=== PATIENT | male | born 1950 | race African-American/Black ===

== ENCOUNTER 2016-11-12 15:27 | Emergency (ER) | payer OTHER ==
[~2016-11-12] VITALS: Ht 177.8 cm; Wt 91.8 kg
[~2016-11-12 15:27] MED LIST: ASPIRIN EC325 MG PO; Aspirin PO; CARAFATE1 GM PO; CATAPRES0.1 MG PO; CATAPRES0.2 MG PO; CIPROFLOXACIN500 M1 PO; CITRATE OF MAG296 ML PO; CLONIDINE HCL0.1 MG PO; DICYCLOMINE HCL20 MG PO; DILTIAZEM PO; DIOVAN160 MG PO; DULCOLAX5 MG PO; Ecotrin PO; FLAGYL500 MG PO; GLIPIZIDE XL10 MG PO; GLIPIZIDE10 MG PO; GLUCOPHAGE500 MG PO; Glucotrol PO; HARVONI 90-4001 EACH PO; HYDROCHLOROTHIA25 MG PO; HYTRIN2 MG PO; Hydrodiuril,Oretic,E PO; INDOCIN25 MG PO; INSULIN; LEVEMIR FL100 UNIT/1 SC; LEVEMIR FL100 UNITS/ SC; LIDODERM 5% P1 PATCH TD; LISINOPRIL10 MG PO; LISINOPRIL20 MG PO; LOW DOSE ASPIRI81 M1 PO; METOPROLOL TART50 MG PO; MORPHINE SULFAT15 M1 PO; MORPHINE SULFAT30 M2 PO; MOTRIN800 MG PO; MS CONTIN,ORAMO30 MG PO; Milk Of Magnesia,MOM PO; NICODERM CQ1 EAC2 TD; NORVASC10 MG PO; Norvasc PO; ONDANSETRON ODT4 MG PO; OPANA ER20 MG PO; OXYCODONE HCL15 MG PO; OXYCONTIN15 MG PO; OXYCONTIN20 MG PO; OXYCONTIN30 MG PO; OXYMORPHONE HCL20 MG; OxyCONTIN PO; PANTOPRAZOLE SO40 MG PO; PERCOCET 10-321 EACH PO; PERCOCET 10/1 TABLET PO; POLYETHYLENE GL17 GM PO; PREDNISONE20 MG PO; PREDNISONE50 MG PO; PRINIVIL10 MG PO; Percocet 5/325,Endoc PO; TERAZOSIN HCL10 MG PO; Tylenol Regular Stre PO; VITAMIN B12 100MCG PO; ZOFRAN4 MG PO; Zestril,Prinivil PO
[2016-11-12 17:46] VITALS: BP 167/80
== END 2016-11-12 20:05 | disposition home or self-care (01) ==
LOC: EME 15:27
DX: S30.0XXA Contusion of lower back and pelvis, initial encounter (principal); G89.29 Other chronic pain; M54.5 Low back pain; W10.9XXA Fall (on) (from) unspecified stairs and steps, initial encounter; E11.9 Type 2 diabetes mellitus without complications; I10 Essential (primary) hypertension; K21.9 Gastro-esophageal reflux disease without esophagitis; R56.9 Unspecified convulsions; F17.200 Nicotine dependence, unspecified, uncomplicated
CPT/HCPCS: 72110; 99281; 99284; J2270

== ENCOUNTER 2017-02-07 04:25 | Emergency (ER) | payer OTHER ==
[~2017-02-07] VITALS: Ht 177.8 cm; Wt 100.0 kg
[2017-02-07 04:48] LABS: ADD MIUA? YES; BILIRUBIN NEGATIVE; BLOOD SMALL; COLOR YELLOW ((YELLOW)); GLUCOSE (STRIP) 150; KETONES NEGATIVE; LEUKOCYTES NEGATIVE; NITRITE NEGATIVE; PROTEIN (STRIP) 100; SPECIFIC GRAVITY 1.018 (1.000-1.030); UROBILINOGEN 0.2 MG/DL (0.2-1.0)
[2017-02-07 04:58] LABS: BACTERIA NONE SEEN /HPF; EPITHELIAL CELLS RARE /HPF; MUCUS TRACE /LPF; RED BLOOD CELLS 0-5 /HPF (0-5); WHITE BLOOD CELLS 0-5 /HPF (0-5)
[2017-02-07 05:25] LABS: EOSINOPHIL (%) 1.5 % (0-5); EOSINOPHIL COUNT 0.2 K/uL (0-0.3); HEMATOCRIT 39.2 % (38.0-50.0); IMMATURE GRANULOCYTE (%) 0.4 % (0.0-0.7); INSTRUMENT ABS NEUTROPHIL CT 7.2 K/uL; LYMPHOCYTE COUNT 2.5 K/uL (1.0-2.8); MCH 30.1 PG (29.0-34.0); MCHC 33.9 G/DL (30.0-36.0); MCV 88.7 FL (86-99); MEAN PLAT.VOLUME 11.7 uM^3 (9.0-12.4); MONOCYTE (%) 5.8 % (3-12); MONOCYTE COUNT 0.6 K/uL (0-0.8); NEUTROPHIL (%) 68.6 % (45-76); NEUTROPHIL COUNT 7.2 K/uL (1.8-6.4); PLATELET COUNT 145 K/uL (156-360); RBC DIS.WIDTH-CV 12.8 % (11.8-14.6); RBC DIS.WIDTH-SD 41.4 % (39-53); RED BLOOD COUNT 4.42 M/uL (4.00-5.50); WHITE BLOOD COUNT 10.5 K/uL (4.1-10.2)
[2017-02-07 05:35] LABS: CHLORIDE 104 mEq/L (99-109); POTASSIUM 3.2 mEq/L (3.7-5.4); SODIUM 139 mEq/L (136-147)
[2017-02-07 05:36] LABS: GLUCOSE 162 mg/dL (70-99)
[2017-02-07 05:38] LABS: ANION GAP 10 MEQ/L (2-14)
[2017-02-07 05:40] LABS: GFR ESTIMATE (CALCULATED) > 59 mL/min/
[2017-02-07 05:41] LABS: UREA NITROGEN (BUN) 16 mg/dL (9-23)
[2017-02-07] MEDS ORDERED: MEDROL DOSEPAK4 MG PO (05:52)
[2017-02-07] MEDS ORDERED: NAPROSYN500 MG PO (05:52)
[2017-02-07] MEDS ORDERED: FLEXERIL10 MG PO (05:52)
[2017-02-07 07:49] VITALS: BP 143/75
== END 2017-02-07 07:50 | disposition home or self-care (01) ==
LOC: EME 04:25
PROVIDERS: Emergency Medicine
DX: M54.9 Dorsalgia, unspecified (principal); R31.9 Hematuria, unspecified; R30.0 Dysuria; R11.2 Nausea with vomiting, unspecified; R50.9 Fever, unspecified; M79.604 Pain in right leg; I70.0 Atherosclerosis of aorta; N28.1 Cyst of kidney, acquired; E11.9 Type 2 diabetes mellitus without complications; Z79.4 Long term (current) use of insulin; I10 Essential (primary) hypertension; Z90.49 Acquired absence of other specified parts of digestive tract; Z79.82 Long term (current) use of aspirin; F17.200 Nicotine dependence, unspecified, uncomplicated
CPT/HCPCS: 74176; 80048; 81003; 85025; 85379; 87086; 93005; 99281; 99284; J1885; J2270; J2405; J3360; J7030

== ENCOUNTER 2017-02-18 20:15 | Observation (INO) | payer OTHER ==
[~2017-02-18] VITALS: Ht 177.8 cm; Wt 97.0 kg
[~2017-02-18 20:15] MED LIST changes: +ASPIR-TRIN325 M1 PO; +FLEXERIL10 MG PO; -LOW DOSE ASPIRI81 M1 PO; +MEDROL DOSEPAK4 MG PO; +NAPROSYN500 MG PO
[2017-02-18 21:12] LABS: HEMATOCRIT 41.4 % (38.0-50.0); MCH 30.4 PG (29.0-34.0); MCHC 33.1 G/DL (30.0-36.0); MCV 91.8 FL (86-99); RBC DIS.WIDTH-CV 13.4 % (11.8-14.6); RBC DIS.WIDTH-SD 45.2 % (39-53); RED BLOOD COUNT 4.51 M/uL (4.00-5.50); WHITE BLOOD COUNT 7.6 K/uL (4.1-10.2)
[2017-02-18 21:23] LABS: CHLORIDE 100 mEq/L (99-109); SODIUM 138 mEq/L (136-147)
[2017-02-18 21:25] LABS: GLUCOSE 215 mg/dL (70-99)
[2017-02-18 21:27] LABS: ANION GAP 7 MEQ/L (2-14)
[2017-02-18 21:29] LABS: GFR ESTIMATE (CALCULATED) > 59 mL/min/
[2017-02-18 21:30] LABS: UREA NITROGEN (BUN) 16 mg/dL (9-23)
[2017-02-18 21:32] LABS: TROP-I INTERPRETATION NEGATIVE; TROPONIN-I < 0.01 ng/mL (0.0-0.30)
[2017-02-18 21:46] LABS: HEMATOLOGY COMMENT 1 SN; PLAT.SUFFICIENCY DECREASED
[2017-02-18 22:27] LABS: MEAN PLAT.VOLUME 11.7 uM^3 (9.0-12.4); PLATELET COUNT 77 K/uL (156-360)
[2017-02-18] MEDS ORDERED: HYTRIN5 MG PO (23:57)
[2017-02-18] MEDS ORDERED: OXYCODONE HCL15 MG PO (23:57)
[2017-02-18] MEDS ORDERED: LYRICA75 MG PO (23:58)
[2017-02-19 02:26] LABS: D-DIMER ELISA < 150.00 ng/mLDDU (<230)
[2017-02-19 02:39] VITALS: BP 226/98
[2017-02-19 02:40] LABS: TROP-I INTERPRETATION NEGATIVE; TROPONIN-I 0.01 ng/mL (0.0-0.30)
[2017-02-19 03:52] VITALS: BP 180/80
[2017-02-19 07:10] LABS: HEMATOCRIT 38.4 % (38.0-50.0); MCH 29.8 PG (29.0-34.0); MCHC 32.6 G/DL (30.0-36.0); MCV 91.4 FL (86-99); MEAN PLAT.VOLUME 12.6 uM^3 (9.0-12.4); PLATELET COUNT 66 K/uL (156-360); RBC DIS.WIDTH-CV 13.4 % (11.8-14.6); RBC DIS.WIDTH-SD 45.3 % (39-53); WHITE BLOOD COUNT 7.6 K/uL (4.1-10.2)
[2017-02-19 07:29] LABS: ALKALINE PHOSPHATASE 81 IU/L (3-129); ANION GAP 6 MEQ/L (2-14); CHLORIDE 100 MEQ/L (99-109); GFR ESTIMATE (CALCULATED) > 59 mL/min/; GLUCOSE 240 mg/dL (70-99); SAMPLE HEMOLYSIS CHECK 0; SAMPLE ICTERIC CHECK 0; SAMPLE LIPEMIA CHECK 0; SODIUM 135 MEQ/L (136-147); TOTAL BILIRUBIN 0.4 MG/DL (0.0-1.0); UREA NITROGEN (BUN) 16 mg/dL (9-23)
[2017-02-19 09:02] LABS: POINT-OF-CARE METER ID UU13113700
[2017-02-19 09:10] LABS: TROP-I INTERPRETATION NEGATIVE; TROPONIN-I < 0.01 ng/mL (0.0-0.30)
[2017-02-19 09:11] VITALS: BP 192/87
[2017-02-19 10:56] VITALS: BP 188/86
[2017-02-19 12:29] VITALS: BP 173/83
[2017-02-19 12:31] LABS: POINT-OF-CARE METER ID UU13113831
[2017-02-19] MEDS ORDERED: HYTRIN5 MG PO (13:02)
[2017-02-19] MEDS ORDERED: NORVASC10 MG PO (13:02)
[2017-02-19] MEDS ORDERED: HYDROCHLOROTHIA25 MG PO (13:03)
== END 2017-02-19 14:10 | disposition home or self-care (01) ==
LOC: EME 20:15 → EDOF 02-19 00:41 → ENRESERV 02-19 00:42 → 5WEST 02-19 02:29
PROVIDERS: Internal Medicine
DX: R07.9 Chest pain, unspecified (principal); I10 Essential (primary) hypertension; R51 Headache; T46.5X6A Underdosing of other antihypertensive drugs, initial encounter; Z91.128 Patient's intentional underdosing of medication regimen for other reason; D69.6 Thrombocytopenia, unspecified; E11.9 Type 2 diabetes mellitus without complications; B18.2 Chronic viral hepatitis C; K86.1 Other chronic pancreatitis; G40.909 Epilepsy, unspecified, not intractable, without status epilepticus; K21.9 Gastro-esophageal reflux disease without esophagitis; N40.0 Benign prostatic hyperplasia without lower urinary tract symptoms; F17.200 Nicotine dependence, unspecified, uncomplicated; G89.29 Other chronic pain; Z90.49 Acquired absence of other specified parts of digestive tract; Z98.1 Arthrodesis status; Z79.891 Long term (current) use of opiate analgesic; Z79.4 Long term (current) use of insulin; Z79.82 Long term (current) use of aspirin; Z79.84 Long term (current) use of oral hypoglycemic drugs
CPT/HCPCS: 70450; 71020; 80048; 80053; 82948; 84484; 85027; 85379; 93005; 99281; 99285; G0378; J1644; J1815; J2270; J7030

== ENCOUNTER 2017-02-27 16:55 | Emergency (ER) | payer OTHER ==
[~2017-02-27] VITALS: Ht 177.8 cm; Wt 90.9 kg
[~2017-02-27 16:55] MED LIST changes: +HYTRIN5 MG PO; +LYRICA75 MG PO
[2017-02-27 17:17] VITALS: BP 152/84
== END 2017-02-27 18:10 | disposition left against medical advice (07) ==
LOC: EME 16:55
DX: M54.9 Dorsalgia, unspecified (principal); Z53.21 Procedure and treatment not carried out due to patient leaving prior to being seen by health care provider

== ENCOUNTER 2017-07-31 20:32 | Observation (INO) | payer OTHER ==
[~2017-07-31] VITALS: Ht 177.8 cm; Wt 94.9 kg
[2017-07-31 21:24] LABS: BASOPHIL (%) 0.2 % (0-1); EOSINOPHIL (%) 2.4 % (0-5); EOSINOPHIL COUNT 0.2 K/uL (0-0.3); HEMATOCRIT 38.4 % (38.0-50.0); HEMOGLOBIN 13.2 G/DL (12.5-16.6); IMMATURE GRANULOCYTE (%) 0.3 % (0.0-0.7); LYMPHOCYTE (%) 32.5 % (15-42); MCHC 34.4 G/DL (30.0-36.0); MCV 90.1 FL (86-99); MONOCYTE (%) 4.7 % (3-12); MONOCYTE COUNT 0.3 K/uL (0-0.8); NEUTROPHIL (%) 59.9 % (45-76); NEUTROPHIL COUNT 3.7 K/uL (1.8-6.4); PLATELET COUNT 102 K/uL (156-360); RBC DIS.WIDTH-CV 13.2 % (11.8-14.6); RBC DIS.WIDTH-SD 43.3 % (39-53); RED BLOOD COUNT 4.26 M/uL (4.00-5.50); WHITE BLOOD COUNT 6.2 K/uL (4.1-10.2)
[2017-07-31 21:33] LABS: D-DIMER ELISA < 150.00 ng/mLDDU (<230)
[2017-07-31 21:34] LABS: CHLORIDE 102 mEq/L (99-109); POTASSIUM 3.6 mEq/L (3.7-5.4); SODIUM 138 mEq/L (136-147)
[2017-07-31 21:37] LABS: GLUCOSE 202 mg/dL (70-99); TOTAL PROTEIN 7.2 g/dL (6.4-8.3)
[2017-07-31 21:38] LABS: TOTAL BILIRUBIN 0.3 mg/dL (0.0-1.0)
[2017-07-31 21:40] LABS: ALKALINE PHOSPHATASE 81 IU/L (3-129); GFR ESTIMATE (CALCULATED) > 59 mL/min/ (58.99-99999)
[2017-07-31 21:41] LABS: UREA NITROGEN (BUN) 10 mg/dL (9-23)
[2017-07-31 21:42] LABS: AST (GOT) 22 IU/L (2-34)
[2017-07-31 21:43] LABS: ALT (GPT) 24 IU/L (3-49)
[2017-07-31 21:44] LABS: LIPASE 20 U/L (1.0-51.0)
[2017-07-31 21:46] LABS: TROP-I INTERPRETATION NEGATIVE; TROPONIN-I < 0.01 ng/mL (0.0-0.30)
[2017-08-01] MEDS ORDERED: AMLODIPINE BESY10 MG PO (00:07)
[2017-08-01] MEDS ORDERED: OXYMORPHONE HCL20 MG PO (00:07)
[2017-08-01] MEDS ORDERED: CENTRUM SILVER1 EAC5 PO (00:07)
[2017-08-01 01:51] VITALS: BP 193/81
[2017-08-01 04:25] LABS: TROP-I INTERPRETATION NEGATIVE; TROPONIN-I < 0.01 ng/mL (0.0-0.30)
[2017-08-01 05:03] VITALS: BP 188/77
[2017-08-01 07:00] VITALS: BP 185/86
[2017-08-01 10:01] LABS: TROP-I INTERPRETATION NEGATIVE; TROPONIN-I < 0.01 ng/mL (0.0-0.30)
[2017-08-01 11:02] VITALS: BP 147/79
[2017-08-01] MEDS ORDERED: LISINOPRIL10 MG PO (11:17)
== END 2017-08-01 12:31 | disposition home or self-care (01) ==
LOC: EME 20:32 → ENPENDDIS 08-01 → EDOF 08-01 00:18 → 5WEST 08-01 00:18 → ENRESERV 08-01 00:19 → 5WEST 08-01 01:32
PROVIDERS: Emergency Medicine; Internal Medicine; Physician Assistant
DX: R07.89 Other chest pain (principal); I10 Essential (primary) hypertension; K21.9 Gastro-esophageal reflux disease without esophagitis; E11.9 Type 2 diabetes mellitus without complications; D69.6 Thrombocytopenia, unspecified; Z86.19 Personal history of other infectious and parasitic diseases; N40.0 Benign prostatic hyperplasia without lower urinary tract symptoms; G89.29 Other chronic pain; M54.9 Dorsalgia, unspecified; R42 Dizziness and giddiness; R20.0 Anesthesia of skin; R61 Generalized hyperhidrosis; R06.02 Shortness of breath; R11.0 Nausea; F17.210 Nicotine dependence, cigarettes, uncomplicated; Z98.1 Arthrodesis status; Z90.49 Acquired absence of other specified parts of digestive tract; Z82.49 Family history of ischemic heart disease and other diseases of the circulatory system; Z80.9 Family history of malignant neoplasm, unspecified; Z79.4 Long term (current) use of insulin; Z79.82 Long term (current) use of aspirin; Z88.5 Allergy status to narcotic agent; Z91.040 Latex allergy status
CPT/HCPCS: 71046; 74177; 80053; 82948; 83690; 84484; 85025; 85379; 93005; 99281; 99285; G0378; J1644; J2405; J2765; J7030